=== PATIENT | female | born 1950 | race Caucasian/White ===

== ENCOUNTER → 2016-11-22 | Outpatient (CLI) | payer BC ==
[~2016-11-22] MED LIST: CALCTAB5 PO; CHOL100010 PO; HYDR0.5T PO; LEVO100T84 PO; TOCI80IN IV; VSC/5 PO
--- NOTE | 2016-11-23 12:46 | MAMMOGRAPHY REPORT ---
BILATERAL DIGITAL SCREENING MAMMOGRAM TOMOSYNTHESIS WITH CAD: 11/22/2016 CLINICAL HISTORY: Routine screening. Patient has no complaints. TECHNIQUE: Breast tomosynthesis in addition to standard 2D mammography was performed. Current study was also evaluated with a Computer Aided Detection (CAD) system. COMPARISON: Comparison is made to exams dated: 08/12/2015 mammogram, 07/17/2014 mammogram, 06/11/2013 mammogram, 06/09/2012 mammogram, 06/08/2012 mammogram, and 06/02/2011 mammogram - [facility]. BREAST COMPOSITION: The tissue of both breasts is heterogeneously dense, which may obscure small mas ses. FINDINGS: The parenchymal pattern is similar to prior exams. No developing mass, architectural dist ortion or cluster of suspicious microcalcifications is seen in either breast. IMPRESSION: ACR BI-RADS CATEGORY 2: BENIGN There is no mammographic evidence of malignancy. A 1 year screening mammogram is recommended. The pa tient will receive written notification of the results. Approximately 10% of breast cancers are not detected with mammography. A negative mammographic report should not delay biopsy if a clinically suggestive mass is present. Kelsea Garcia M.D. ay/:11/22/2016 21:59:12 Auto [employer] Dispatcher: Sailaja GARDINER(Atiya)(Christian)([place]), [facility] letter sent: Normal 1/2 BI-RADS Code: ACR BI-RADS Category 2: Benign
== END | disposition home or self-care (01) ==
LOC: C.MAMM 16:14
PROVIDERS: ATTEND Family Medicine
DX: Z12.31 Encounter for screening mammogram for malignant neoplasm of breast (principal)

== ENCOUNTER → 2017-03-16 | Outpatient (CLI) | payer BC ==
--- NOTE | 2017-03-16 11:03 | DIAGNOSTIC IMAGING REPORT ---
L ANKLE MIN 3 VIEWS, L FOOT MIN 3 VIEWS HISTORY: 67 years-old Female LEFT FOOT AND ANKLE PAIN acute left foot and ankle pain status post fall. COMPARISON: None available. TECHNIQUE: 3 views of the left foot and 3 views of the left ankle. FINDINGS: ANKLE: There is moderate soft tissue swelling about the ankle, greatest laterally. There is mild cortical irregularity of the distalmost fibula suspicious for subtle avulsion fracture. No displaced large fracture identified. Small joint effusion. FOOT: Cortical step-off and linear lucency is noted involving the lateral base of the first metatarsal nicely seen on the frontal projection. There may be associated intra-articular extension into the tarsometatarsal joint. Midfoot alignment is anatomic. Moderate first MTP joint degenerative changes. There is mild to moderate dorsal forefoot soft tissue swelling. IMPRESSION: 1. Acute nondisplaced possibly intra-articular fracture involves the medial base of the first metatarsal. Associated mild to moderate dorsal forefoot soft tissue swelling. 2. Suspected subtle acute avulsion fracture of the distal most fibula with moderate adjacent soft tissue swelling. 3. Moderate first MTP joint osteoarthritis. The above report was generated using voice recognition software. It may contain grammatical, syntax or spelling errors. Electronically signed by: Bernardo Pepe M.D. 03/16/2017 11:01 AM Dictated Date/Time: 03/16/2017 10:57 AM
== END | disposition home or self-care (01) ==
LOC: C.RDSM 10:32
PROVIDERS: ATTEND Physician Assistant
DX: M25.572 Pain in left ankle and joints of left foot (principal)